=== PATIENT | male | born 1940 | race Caucasian/White ===

== ENCOUNTER 2016-06-03 19:22 | Emergency (ER) | payer MEDICARE ==
[2016-06-03 19:35] VITALS: TEMP 98.3
[2016-06-03 19:49] VITALS: BMI 24.1
--- NOTE | 2016-06-03 19:55 | DIRPT ---
CLINICAL DATA: Code stroke. Left-sided facial numbness and dizziness for 1 hour. EXAM: CT HEAD WITHOUT CONTRAST TECHNIQUE: Contiguous axial images were obtained from the base of the skull through the vertex without intravenous contrast. COMPARISON: Head CT 09/02/2009 FINDINGS: No intracranial hemorrhage, mass effect, or midline shift. No hydrocephalus. The basilar cisterns are patent. No evidence of territorial or large vessel ischemia. No intracranial fluid collection. Calvarium is intact. Questionable polyp in the left maxillary sinus, with decreased mucosal thickening from prior. Remaining paranasal sinuses and mastoid air cells are well aerated. IMPRESSION: No acute intracranial abnormality. These results were called by telephone at the time of interpretation on 06/03/2016 at 7:[address] GRAY AZEVEDO DO, who verbally acknowledged these results. Electronically Signed By: Madelaine Perez M.D. On: 06/03/2016 19:53
[2016-06-03 20:12] LABS: AUTOMATED BASOPHIL 0.8 % (0-2); AUTOMATED EOSINOPHIL 4.3 % (0-5); AUTOMATED LYMPH 50.9 % (17-44); AUTOMATED MONOCYTE 7.4 % (3-10); AUTOMATED NEUTROPHIL 36.6 % (45-76); MPV 8.4 fL (7.4-10.4)
[2016-06-03 20:18] LABS: PARTIAL THROMB. TIME 25.2 SEC (22-35); PT-INR 1.1
[2016-06-03 20:22] LABS: BLOOD UREA NITROGEN 23 MG/DL (9-20); CALC CORRECTED 9.5 MG/DL (8.4-10.2); CALCIUM 9.4 MG/DL (8.4-10.2); CALCULATED OSMOLALITY 267 MOs/Kg (270-290); CHLORIDE 99 mEq/L (98-107); GLUCOSE 86 MG/DL (70-99); SODIUM LEVEL 137 mEq/L (137-146); TOTAL PROTEIN 7.2 G/DL (6.3-8.2)
--- NOTE | 2016-06-03 20:43 | EDPRACDOC ---
- General Information Chief Complaint: Neuro Symptoms/Deficits Stated Complaint: DIZZINESS; FACIAL NUMBNESS Time Seen by Provider: 06/03/16 20:19 Information Source: Patient, Family Home Medications: Home Medications Finasteride 5 mg PO DAILY 08/11/14 Hydrochlorothiazide 25 mg PO DAILY 08/11/14 Levothyroxine Sodium 100 mcg PO DAILY 08/11/14 Lisinopril 40 mg PO DAILY 08/11/14 Omeprazole [Prilosec] 20 mg PO DAILY 08/11/14 Simvastatin 10 mg PO DAILY 08/11/14 Valproic Acid 1,000 mg PO QAM 08/11/14 Aspirin/Calcium Carbonate/Mag [Aspirin Buffered 325 mg Tab] 325 mg PO DAILY #60 tablet 06/03/16 Valproic Acid 500 mg PO HS 06/03/16 Allergies/Adverse Reactions: Allergies Allergy/AdvReac Type Severity Reaction Status Date / Time No Known Allergies Allergy Verified 06/03/16 19:45 - History of Present Illness Date Symptoms Started: 06/03/16 Time Symptoms Started: 19:00 HPI: C/o new sudden onset new left side face numbness and tingling, left side tongue numbness, with blurry vision in left eye and dizzyness to the point where he couldn't stand. Episode lasted about 30 mins and then reolved, except for double vision and dizzyness. Episode started 1.5 hrs ago. Sx included only face , no other part of the body was affected. Med hx= hypothyroid, HTN, HDL, epilepsy. No prior hx of CVA, cardiac or lung dz. 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 Denies: Hypertension, Diabetes, Cancer - Social Medical History Smoking Status: Never smoker EDM Review of Systems - Review of Systems ROS Negative Except as Marked: Yes All systems reviewed and were negative except as marked Eyes: Blurred Vision, Double Vision Mouth: Other (left side tongue numb) Neurological: Dizziness, Numbness, Tingling Endocrine: Hypothyroidism - Physical Exam Constitutional: No apparent distress, Alert Oriented to: Time, Person, Place Last recorded Vital Signs: Last Vital Signs Temp 98.3 F 06/03/16 19:45 Pulse 69 06/03/16 20:09 Resp 21 06/03/16 20:09 BP 171/80 06/03/16 20:09 Pulse Ox 95 06/03/16 20:09 Oxygen Pulse Oxygen Saturation 95 O2 Device Room Air Oxygen Flow Rate Fraction of Inspired Oxygen ( FIO2) - HEENT Head: Normal Eye Exam: negative: Conjunctival Injection, Scleral Icterus Oropharynx: negative: Drooling TMJ: Normal Nose: No Symptoms Reported Neck: Normal - Respiratory/Cardiovascular Respiratory: Normal - CTA Cardiovascular: Normal - GI Tenderness: Non tender - Musculoskeletal Back: Normal Extremities: Normal - Integumentary Skin: Normal - Neurologic Memory Impaired: Normal Motor Function: Normal Cranial Nerve: Normal Cerebellar: Normal Mood Description: Normal Thought: Coherent NIH Stroke Scale Initial Evaluation Level of Consciousness: Alert LOC- Question: Answers Both Correctly LOC Commands: Both Task Correctly Best Gaze: Normal Visual: No Visual Loss Facial Palsy: Normal Movement Motor Arm LEFT: No Drift Motor Arm RIGHT: No Drift Motor Leg LEFT: No Drift Motor Leg RIGHT: No Drift Sensory: Normal Best Language: No Aphasia Dysarthria: Normal Extinction and Inattention: No Abnormality (Neglect) - Neurologic Orientation: Time, Person, Place Speech: Fluent Coginitive: Normal Affect: Normal Thought: Coherent Perception: Normal - Coordination Finger to Nose Test: Normal Performance Alternate Nose to Finger Test: Normal Performance Heel on Waters Test: Normal Performance - Re-evaluation Re-evaluation 1 Re-evaluation Time: 22:46 (pt vision and dizzyness resolved. Able to ambulate without issue. Ready to go home. ) - Results 06/03/16 19:51 06/03/16 19:51 WBC 7.9 xk/uL (3.8-10.8) 06/03/16 19:51 RBC 4.17 xM/uL (4.70-6.10) L 06/03/16 19:51 Hgb 12.6 g/dL (14.0-18.0) L 06/03/16 19:51 Hct 37.1 % (42-52) L 06/03/16 19:51 MCV 89 fL (80-94) 06/03/16 19:51 MCH 30.2 pg (27-32) 06/03/16 19:51 MCHC 34.0 g/dl (33-36) 06/03/16 19:51 RDW 13.3 % (11.5-14.5) 06/03/16 19:51 Plt Count 220 xk/uL (130-400) 06/03/16 19:51 MPV 8.4 fL (7.4-10.4) 06/03/16 19:51 Neut % (Auto) 36.6 % (45-76) L 06/03/16 19:51 Lymph % (Auto) 50.9 % (17-44) H 06/03/16 19:51 [place] % (Auto) 7.4 % (3-10) 06/03/16 19:51 Eos % (Auto) 4.3 % (0-5) 06/03/16 19:51 Baso % (Auto) 0.8 % (0-2) 06/03/16 19:51 Absolute Neuts (auto) 2.84 xk/uL (1.7-8.2) 06/03/16 19:51 Absolute Lymphs (auto) 3.95 xk/uL (0.65-4.75) 06/03/16 19:51 PT 11.4 SEC (9.2-11.2) H 06/03/16 19:51 INR 1.1 06/03/16 19:51 APTT 25.2 SEC (22-35) 06/03/16 19:51 Sodium 137 mEq/L (137-146) 06/03/16 19:51 Potassium 4.2 mEq/L (3.5-5.1) 06/03/16 19:51 Chloride 99 mEq/L (98-107) 06/03/16 19:51 Carbon Dioxide 26 mMOL/L (22-33) 06/03/16 19:51 Anion Gap 16 mEq/L (8-16) 06/03/16 19:51 BUN 23 MG/DL (9-20) H 06/03/16 19:51 Creatinine 1.30 MG/DL (0.66-1.25) H 06/03/16 19:51 Estimated GFR (MDRD) 54 mL/min (>=60) L 06/03/16 19:51 Glucose 86 MG/DL (70-99) 06/03/16 19:51 Calculated Osmolality 267 MOs/Kg (270-290) L 06/03/16 19:51 Calcium 9.4 MG/DL (8.4-10.2) 06/03/16 19:51 Corrected Calcium 9.5 MG/DL (8.4-10.2) 06/03/16 19:51 Total Bilirubin 0.4 MG/DL (0.2-1.3) 06/03/16 19:51 AST 25 IU/L (17-59) 06/03/16 19:51 ALT 29 IU/L (21-72) 06/03/16 19:51 Alkaline Phosphatase 83 IU/L (50-160) 06/03/16 19:51 Troponin I 0.02 ng/mL (<.04) 06/03/16 19:51 Total Protein 7.2 G/DL (6.3-8.2) 06/03/16 19:51 Albumin 3.9 G/DL (3.5-5.0) 06/03/16 19:51 Lab Results 06/03/16 06/03/16 06/03/16 19:51 19:51 19:51 WBC 7.9 RBC 4.17 L Hgb 12.6 L Hct 37.1 L MCV 89 MCH 30.2 MCHC 34.0 RDW 13.3 Plt Count 220 MPV 8.4 Neut % (Auto) 36.6 L Lymph % (Auto) 50.9 H [place] % (Auto) 7.4 Eos % (Auto) 4.3 Baso % (Auto) 0.8 Absolute Neuts (auto) 2.84 Absolute Lymphs (auto) 3.95 PT 11.4 H INR 1.1 APTT 25.2 Sodium 137 Potassium 4.2 Chloride 99 Carbon Dioxide 26 Anion Gap 16 BUN 23 H Creatinine 1.30 H Estimated GFR (MDRD) 54 L Glucose 86 Calculated Osmolality 267 L Calcium 9.4 Corrected Calcium 9.5 Total Bilirubin 0.4 AST 25 ALT 29 Alkaline Phosphatase 83 Troponin I 0.02 Total Protein 7.2 Albumin 3.9 - EKG EKG #1 EKG Time: 20:18 -: Yes EKG interpreted by me Rate: bpm: 64 Rhythm: PACs, Other (sinus rhthym) Block: None Hypertrophy: None ST: Normal Comparison: 10/03/09 (sinus suresh) - Diagnostic Imaging Chest Image interpreted by: Radiologist EXAM: PORTABLE CHEST 1 VIEW COMPARISON: Chest radiograph 09/03/2009 FINDINGS: Monitoring leads overlie the patient. Stable cardiac contours with tortuosity of the thoracic aorta. Low lung volumes. No consolidative pulmonary opacities. No pleural effusion or pneumothorax. Postsurgical changes proximal humerus. IMPRESSION: No acute cardiopulmonary process. Electronically Signed By: Lionel Stallings M.D. On: 06/03/2016 20:39 Head Image interpreted by: Radiologist EXAM: CT HEAD WITHOUT CONTRAST TECHNIQUE: Contiguous axial images were obtained from the base of the skull through the vertex without intravenous contrast. COMPARISON: Head CT 09/02/2009 FINDINGS: No intracranial hemorrhage, mass effect, or midline shift. No hydrocephalus. The basilar cisterns are patent. No evidence of territorial or large vessel ischemia. No intracranial fluid collection. Calvarium is intact. Questionable polyp in the left maxillary sinus, with decreased mucosal thickening from prior. Remaining paranasal sinuses and mastoid air cells are well aerated. IMPRESSION: No acute intracranial abnormality. These results were called by telephone at the time of interpretation on 06/03/2016 at 7:[address] GRAY AZEVEDO DO, who verbally acknowledged these results. Electronically Signed By: Madelaine Perez M.D. On: 06/03/2016 19:53 - Additional Information Pt states his BP usually in the 160's. Decision Time to Discharge: 23:30 - Departure Disposition: Home Condition: Stable Final Diagnosis: TIA (transient ischemic attack) Qualifiers: Transient cerebral ischemia type: unspecified Qualified Code(s): G45.9 - Transient cerebral ischemic attack, unspecified Instructions: Transient Ischemic Attack (ED) Education/Counseling Given To: Patient, Family Member Education/Counseling Given Regarding: Diagnosis, Treatment, Prognosis, Follow Up Referrals: Mikayla Serrano DO [Primary Care Provider] - One Week Prescriptions: Aspirin/Calcium Carbonate/Mag [Aspirin Buffered 325 mg Tab] 325 mg PO DAILY #60 tablet Additional Instructions: Follow up with primary care. Take 325mg of aspirin daily to decrease potential risk of stroke. Return to ED for any new or worsening symptoms.
[2016-06-03] MEDS ORDERED: ASPIRIN (CHEWABLE) 81 MG TAB PO ONE (20:44)
[2016-06-03 23:33] VITALS: BP 157/77; PULSE 66
== END 2016-06-03 23:58 | disposition home or self-care (01) ==
LOC: ED 19:22
DX: G45.9 Transient cerebral ischemic attack, unspecified (principal)
CPT/HCPCS: 36415; 70450; 71010; 80053; 84484; 85025; 85610; 85651; 85730; 93005; 99284; A9270; J3490